=== PATIENT | male | born 1940 | race Caucasian/White ===

== ENCOUNTER → 2017-07-04 | Outpatient (CLI) | payer OTHER ==
[~2017-07-04] MED LIST: ASPEC81 PO; ATOR-26 PO; CLOP1TAB15 PO; CZR50 PO; ISOS60TA25 PO; METO1TAB69 PO; NIAC1TAB59 PO; NTRGSL/4 UT
--- NOTE | 2017-07-07 09:53 | MYOCARDIAL PERFUSION SCAN ---
ONE-DAY NUCLEAR MEDICINE TECHNETIUM-99M CARDIOLITE MYOCARDIAL PERFUSION SCAN CLINICAL HISTORY: The patient has known coronary artery disease and has had a total of 7 intracoronary stents. He presents with a chest pain syndrome and dyspnea. COMPARISON: None. TECHNIQUE: For the stress portion of the study, 32.9 mCi of Technetium 99 m Cardiolite IV was injected at 11:25 a.m. on 07/04/2017. Thirty minutes following the injection, imaging of the heart was performed in multiple projection. For the rest portion of the study, 10.9 mCi of Technetium 99 m Cardiolite was injected IV at 9:40 a.m. One hour following the injection, imaging of the heart was performed in the same projections. For the stress portion of the study, 0.4 mg of Lexiscan was injected intravenously as per protocol. The patient tolerated the procedure well. He did not experience chest discomfort. There were no EKG changes. Baseline EKG noted sinus rhythm and poor R-wave progression across the anterior precordium. Following the study, the patient was hemodynamically stable without complaints. FINDINGS: The short axis, vertical long axis, and horizontal long axis images were reviewed in detail. There is a large defect involving the mid and distal anterior wall, the entire apex, and the entire septum. The inferior wall also demonstrates a large defect. Only the lateral wall has normal perfusion at both stress and rest. There is no evidence of myocardial ischemia. The left ventricle demonstrates reduced systolic performance with an ejection fraction of 26%. The areas described above were [id number] hypokinetic. IMPRESSION: 1. Scintigraphic evidence of a large anterior, apical, and inferior myocardial infarction. 2. Only the lateral wall demonstrates normal perfusion. 3. No Lexiscan-induced chest pain. 4. No Lexiscan-induced EKG change. 5. Reduced left ventricular ejection fraction of 26% with a large wall motion abnormality in the area described above.
== END | disposition home or self-care (01) ==
LOC: C.NUCL 09:10
PROVIDERS: ATTEND Physician Assistant
DX: R07.9 Chest pain, unspecified (principal)

== ENCOUNTER 2021-09-16 11:51 | Inpatient (IN) ==
[2021-09-16] MEDS ORDERED: HEPARIN (PORCINE) 1000 UNIT/ML 10 ML (CATH LAB USE ONLY) ONE ×3 (12:19→14:24)
[2021-09-16] MEDS ORDERED: fentaNYL citrate 100 MCG/2 ML VIAL ONE (12:19)
[2021-09-16] MEDS ORDERED: niCARdipine HCL INJ 2.5 MG/ML 10 ML AMP ONE (12:19)
[2021-09-16] MEDS ORDERED: NITROGLYCERIN/D5W 100MCG/ML 20ML SYR ONE (12:20)
[2021-09-16] MEDS ORDERED: MIDAZOLAM HCL 1 MG/ML 2ML VIAL ONE (12:20)
[2021-09-16 12:28] LABS: Basophils # (auto) 0.01 K/uL (0-0.2); Basophils % (auto) 0.1 %; Eosinophils # (auto) 0.02 K/uL (0-0.5); Eosinophils % (auto) 0.3 %; Hematocrit (blood only) 43.7 % (42-52); Hemoglobin 14.6 g/dL (14.0-18.0); Immature Granulocytes # (auto) 0.01 K/uL (0.00-0.02); Immature Granulocytes % (auto) 0.1 %; Lymphocytes # (auto) 0.99 K/uL (1.2-3.4); Lymphocytes % (auto) 14.3 %; Mean Corpuscular Hemoglobin 31.3 pg (25-34); Mean Corpuscular Hgb Conc 33.4 g/dL (32-36); Mean Corpuscular Volume 93.8 fL (80-100); Mean Platelet Volume 10.5 fL (7.4-10.4); Monocytes # (auto) 0.39 K/uL (0.11-0.59); Monocytes % (auto) 5.6 %; Neutrophils # (auto) 5.52 K/uL (1.4-6.5); Neutrophils % (auto) 79.6 %; Platelet Count 304 K/uL (130-400); RDW Coefficient of Variation 14.1 % (11.5-14.5); RDW Standard Deviation 47.7 fL (36.4-46.3); Red Blood Count 4.66 M/uL (4.7-6.1); White Blood Count 6.94 K/uL (4.8-10.8)
[2021-09-16 12:41] LABS: INR 1.1 (0.9-1.1); Partial Thromboplastin Ratio 0.9; Partial Thromboplastin Time 23.4 Seconds (21.0-31.0); Prothrombin Time 10.8 Seconds (9.0-12.0)
[2021-09-16] MEDS ORDERED: FUROSEMIDE 40 MG/4 ML VIAL IV ONE ×2 (12:44→14:07)
[2021-09-16 12:47] LABS: Albumin Level 3.8 gm/dl (3.4-5.0); BUN Creatinine Ratio 18.9 (10-20); Calcium 9.9 mg/dl (8.5-10.1); Creatinine Clr Calc Pharmacy 36.6 ml/min; Est GFR (African American) 43.2 ml/min; Est GFR (Non-African American) 37.3 ml/min
[2021-09-16] MEDS ORDERED: SUCCINYLCHOLINE CHLORIDE 20 MG/ML 10 ML VIAL IV ONE (12:49)
[2021-09-16] MEDS ORDERED: RAPID SEQUENCE INDUCTION BAG ONE (12:49)
[2021-09-16] MEDS ORDERED: ETOMIDATE 2 MG/ML 20 ML VIAL IV ONE (12:49)
[2021-09-16] MEDS ORDERED: PROPOFOL IV EMULSION 10 MG/ML 100 ML VIAL (CATH LAB USE ONLY) ONE ×2 (12:52→16:34)
--- NOTE | 2021-09-16 12:52 | XRay Report ---
XR chest 1V portable CLINICAL HISTORY: Chest Pain COMPARISON STUDY: Chest radiograph July 08, 2009. FINDINGS: Lung volumes are normal. There is no pneumothorax. There are suspected trace bilateral pleu ral effusions. Extensive interstitial thickening represents pulmonary edema. Right perihilar opacity is present. Cardiomegaly is noted. IMPRESSION: 1. Extensive pulmonary edema with suspected trace bilateral pleural effusions. 2. Right perihilar opacity which may reflect alveolar edema. Radiographic follow-up to ensure resolut ion is recommended. ACT 112: Negative or not required by law. Electronically signed by: Kt Delacruz M.D. 09/16/2021 12:50 PM
[2021-09-16 12:56] LABS: Albumin Globulin Ratio 0.8 (0.9-2); Bilirubin,Total 0.5 mg/dl (0.2-1); Total Protein 8.8 gm/dl (6.4-8.2); Troponin I 3.7 ng/ml (0-0.045)
[2021-09-16] MEDS ORDERED: NOREPINEPHRINE BITARTRATE 1 MG/ML 4 ML VIAL (CATH LAB USE ONLY) ONE ×2 (12:58→16:52)
--- NOTE | 2021-09-16 13:14 | Emergency Department Note ---
Impression & Plan Acute CA, true posterior wall, Chest pain, Pulmonary edema, Respiratory failure ED Provider Note NAME: CALISTA BOATENG AGE: 81 SEX: M : 1940 ARRIVES VIA: Ambulance INFORMANT: Patient, EMS personnel ED PROVIDER(S): Brett Sheehan DO CHIEF COMPLAINT: Chest pain HPI: The patient is an 81-year-old male who presented to the emergency department for an evaluation of chest pain. The patient called 911 because of the ongoing chest pain. The patient started having chest pain this morning at approximately 5 AM. He notices diaphoresis as well as some shortness of breath. He describes the pain as heaviness he also notices pain into his shoulders. The patient states that he has had similar symptoms in the past with a heart att ack. Has not had a heart catheterization in many years. The patient arrived via ambulance. No IV was placed prior to arrival. The patient did receive aspirin prior to arrival. He also received his own nitroglycerin at home as well as nitroglycerin spray by the prehospital personnel. The patient states the pain is moderate at this time. He does note some worsening with exertion. He does admit that he has had some worsening pain over the course of the last few days but it was not continuous until today. The patient denies having any fever or cough. He has had no recent traveling. He does note swelling in his legs which is not new. ROS: See above HPI for pertinent positives & negatives. A total of 10 systems reviewed and were otherwise negative. PAST MEDICAL HISTORY: See Below PAST SURGICAL HISTORY: See Below FAMILY HISTORY: See Below SOCIAL HISTORY: See Below HOME MEDICATIONS: See Below ALLERGIES: See Below VITALS: See Below PHYSICAL EXAMINATION: GENERAL: The patient is awake and alert. He is somewhat anxious appearing. EYES: The conjunctivae are clear. The pupils are round and reactive. EARS, NOSE, MOUTH AND THROAT: The nose is without any evidence of any deformity.. NECK: The neck is nontender and supple. RESPIRATORY: Diminished breath sounds are noted throughout. There were rales at both bases. There is no tachypnea or conversational dyspnea. CARDIOVASCULAR: Regular rate and rhythm noted there no murmurs rubs or gallops normal S1 normal S2. GASTROINTESTINAL: The abdomen is soft. Abdomen is nontender. MUSCULOSKELETAL/EXTREMITIES: There is no evidence of gross deformity full range of motion is noted in the hips and shoulders. SKIN: Skin is cool and diaphoretic. Pedal edema was noted bilaterally. NEUROLOGIC: Patient is awake alert and oriented x3. MEDICAL DECISION MAKING: The patient is an 81-year-old male who presented to the emergency department for an evaluation of chest pain. The patient called 911 because of ongoing worsening chest pain. The patient has a history of CA in the past but has not had any intervention for a long time. The patient was found to have signs of posterior wall CA on prehospital EKGs. He was made a heart alert upon arrival to the emergency department. He did receive aspirin and nitroglycerin prior to arrival. The patient was very difficult to obtain an IV site in. I did discuss his condition with the grout worker. The patient's condition continued to worsen while he was in the emergency department. His breathing be came labored and he continued to go into pulmonary edema. The patient ultimately did have an IV placed by IV team. Blood was also drawn by myself. The patient was taken to the cardiac [employer]. Once he was in the cardiac [employer] [facility] his respiratory symptoms became much worse and I was asked to go to the [employer] to evaluate the patient for an endotracheal intubation. The patient had an endotracheal tube placed in the emergency department. He tolerated this quite well. The patient was prepped and cardiac catheterization was started while I was in the cardiac catheterization lab. I did discuss the patient's condition with his family members. Triage Nursing notes reviewed. Prior medical records reviewed Vital Signs: reviewed and remarkable for tachypnea, hypoxia, hypertension. Differential diagnosis: Cardiac ischemia, aortic dissection, pulmonary embolism, pneumothorax, pneumonia, pericarditis, myocarditis, esophageal rupture, GERD, cholecystitis, pancreatitis, musculoskeletal, as well as other pathologies. ER treatment provided: See below Diagnostics interpreted by me: ECG: EKG was obtained in the emergency department. My interpretation is sinus rhythm at 69 bpm. Sinus arrhythmia was noted. There were no PVCs. ST segment depressions were noted in the anterior leads with upgoing T waves consistent with acute posterior wall CA. This was compared to a tracing from February 152010. The changes are new compared to the previous tracing. Prehospital 12-lead was obtained prior to arrival. I did review these after the patient arrived at the emergency department. My interpretation is sinus rhythm at 71 bpm. PVCs were noted. Persistence of the ST segment depressions noted in the emergency department was noted on prehospital EKGs. Cardiac Monitoring: An order was placed for continuous cardiac monitoring. The monitor shows a rate of 93 bpm with sinus rhythm. Laboratory studies: As stated above and show below. Imaging studies: See below Consultation(s): Heart alert was called after I evaluated the patient's prehospital EKGs. Dr. Ornelas presented to the bedside. We discussed the patient's case. He was felt to be a good candidate for cardiac catheterization. ED COURSE: Procedures: Endotracheal Intubation Indication respiratory distress. I was called to the [employer] as the patient was developing worsening difficulty breathing as well as pulmonary edema. The patient was on 100% oxygen via NRB prior to the procedure. Suction, airway equipment, RSI drugs, respiratory equipment, and appropriate personnel were prepared prior to the initiation of the procedure. A time out was taken. Induction was performed with etomidate and succinylcholine. After observing the clinical benefit of the medications, the airway was easily visualized utilizing a glide scope. A 7.5 size ETT tube was placed atraumatically to 22 cm using standard technique. The cuff inflated without signs of malfunction. There were bilateral breath sounds, positive colormetric change, no gastric sounds, a good capnography waveform, and post procedure pulse oximetry was 90%. Post intubation sedation and paralysis was administered using propofol. There were no complications. Critical Care: I have personally spent greater than 45 minutes of critical care time in the direct management of this patient. This includes bedside care, interpretation of diagnostic studies, and testing, discussion with consultants, patient, and family members, and other required patient management activities. This 45 minutes is in excess of all separately billable procedures. 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 Prostate cancer Shortness of breath Sleep apnea Snoring Surgical History History of coronary artery stent placement bare metal x 3 RCA 06/2009; bare metal x 1 proximal LAD 02/14/2011 History of umbilical hernia repair Social History Smoking Status: Never smoker Tobacco Type: Cigarettes marital status: Feels Safe at Home: Yes Allergies Allergies Allergy/AdvReac Type Severity Reaction Status Date / Time lisinopril AdvReac Mild COUGH Verified 04/16/21 11:29 Home Meds Home Medications Medication Instructions Recorded Confirmed atorvastatin 80 mg tablet 80 mg PO DAILY #30 tab 07/20/19 09/16/21 fenofibrate nanocrystallized 145 145 mg PO DAILY tab 07/20/19 09/16/21 mg tablet glimepiride 4 mg tablet 4 mg PO BID tab 07/20/19 09/16/21 pioglitazone 30 mg tablet 30 mg PO DAILY tab 07/20/19 09/16/21 metformin 500 mg tablet,extended 1,000 mg PO DAILY tab 08/11/19 09/16/21 release 24hr aspirin 81 mg tablet,delayed 81 mg PO DAILY 09/16/21 09/16/21 release furosemide 40 mg tablet 40 mg PO UD 09/16/21 09/16/21 hydrochlorothiazide 25 mg tablet 25 mg PO DAILY 09/16/21 09/16/21 losartan 100 mg tablet 100 mg PO DAILY 09/16/21 09/16/21 Previous Rx's Medication Instructions Recorded metoprolol succinate 100 mg 150 mg PO DAILY #135 tab 10/11/20 tablet,extended release 24 hr nitroglycerin 0.4 mg sublingual 0.4 mg SL Q5M PRN #25 tab 11/13/20 tablet isosorbide mononitrate 120 mg 120 mg PO DAILY #90 tab 03/19/21 tablet,extended release 24 hr clopidogrel 75 mg tablet 75 mg PO 2XWK #24 tab 08/06/21 Results & Data (ED) Vital Signs Vital Signs - 24 hr 09/16/21 11:55 09/16/21 12:00 09/16/21 12:01 Temperature 36.7 C Temperature Source Oral Pulse Rate 84 83 Pulse Rate from SpO2 Sensor Respiratory Rate 20 31 H Respiratory Effort / Characteristics Non-Labored Spontaneous Respiratory Depth Normal Respiratory Pattern Regular Blood Pressure 128/70 128/70 Blood Pressure Mean 89 89 Pulse Oximetry 83 L 83 L 90 Oxygen Delivery Method Room Air Room Air Nasal Cannula Oxygen Flow Rate 5 Fraction of Inspired Oxygen Sepsis Recent Fever Within 48 Hours No Sepsis New/Unexplained Change in Mental Status No Sepsis Action Taken by Nursing No Action Required Oxygen Flow Rate - Titration 5 Pulse Oximetry Post Tiitration 90 09/16/21 12:26 09/16/21 12:30 09/16/21 13:00 Temperature Temperature Source Pulse Rate 81 95 H Pulse Rate from SpO2 Sensor 93 H Respiratory Rate 24 31 H 20 Respiratory Effort / Characteristics Respiratory Depth Respiratory Pattern Blood Pressure 147/88 H Blood Pressure Mean 107 Pulse Oximetry 90 91 89 L Oxygen Delivery Method Oxymask Oxymask Oxygen Flow Rate 5 10 Fraction of Inspired Oxygen 100 Sepsis Recent Fever Within 48 Hours Sepsis New/Unexplained Change in Mental Status Sepsis Action Taken by Nursing Oxygen Flow Rate - Titration Pulse Oximetry Post Tiitration 09/16/21 13:37 09/16/21 15:09 Temperature Temperature Source Pulse Rate 93 H Pulse Rate from SpO2 Sensor Respiratory Rate 24 26 H Respiratory Effort / Characteristics Respiratory Depth Respiratory Pattern Blood Pressure Blood Pressure Mean Pulse Oximetry 91 Oxygen Delivery Method Oxygen Flow Rate Fraction of Inspired Oxygen 100 Sepsis Recent Fever Within 48 Hours Sepsis New/Unexplained Change in Mental Status Sepsis Action Taken by Nursing Oxygen Flow Rate - Titration Pulse Oximetry Post Tiitration Home Medications Current Medication List: was personally reviewed by me Laboratory Data Attestation: I reviewed the patient's lab results. Result diagrams: 09/16/21 12:03 09/16/21 12:03 Lab Results 09/16/21 09/16/21 09/16/21 Range/Units 12:00 12:00 12:03 WBC 6.94 (4.8-10.8) K/uL RBC 4.66 L (4.7-6.1) M/uL Hgb 14.6 (14.0-18.0) g/dL Hct 43.7 (42-52) % MCV 93.8 (80-100) fL MCH 31.3 (25-34) pg MCHC 33.4 (32-36) g/dL RDW Std Deviation 47.7 H (36.4-46.3) fL RDW Coeff of Manohar 14.1 (11.5-14.5) % Plt Count 304 (130-400) K/uL MPV 10.5 H (7.4-10.4) fL Immature Gran % (Auto) 0.1 % Neut % (Auto) 79.6 % Lymph % (Auto) 14.3 % [place] % (Auto) 5.6 % Eos % (Auto) 0.3 % Baso % (Auto) 0.1 % Neut # (Auto) 5.52 (1.4-6.5) K/uL Lymph # (Auto) 0.99 L (1.2-3.4) K/uL [place] # (Auto) 0.39 (0.11-0.59) K/uL Eos # (Auto) 0.02 (0-0.5) K/uL Baso # (Auto) 0.01 (0-0.2) K/uL Immature Gran # (Auto) 0.01 (0.00-0.02) K/uL PT (9.0-12.0) Seconds INR (0.9-1.1) APTT (21.0-31.0) Seconds PTT Ratio Activ Coag Time Kaolin (94-140) SECONDS POC pH (7.35-7.45) POC pCO2 (35-46) mmHg POC pO2 (80-95) mmHg POC HCO3 (19-24) josef/L POC Total CO2 (24-31) mmol/L POC Base Excess (-9-1.8) josef/L POC ABG O2 Sat (90-95) % Sodium (136-145) mmol/L Potassium (3.5-5.1) mmol/L Chloride (98-107) mmol/L Carbon Dioxide (21-32) mmol/L Anion Gap (3-11) BUN (7-18) mg/dl Creatinine (0.6-1.4) mg/dl Est Cr Clr Drug Dosing ml/min Est GFR ( Amer) ml/min Est GFR (Non-Af Amer) ml/min BUN/Creatinine Ratio (10-20) Glucose (70-99) mg/dl Calcium (8.5-10.1) mg/dl Total Bilirubin (0.2-1) mg/dl AST (15-37) U/L ALT (12-78) U/L Alkaline Phosphatase (45-117) U/L Troponin I (0-0.045) ng/ml Total Protein (6.4-8.2) gm/dl Albumin (3.4-5.0) gm/dl Globulin (2.5-4.0) gm/dl Albumin/Globulin Ratio (0.9-2) Lipase (73-393) U/L COVID-19 Eval Order Covid19 at [facility] SARS-CoV-2 (PCR) NEGATIVE (Negative) 09/16/21 09/16/21 09/16/21 Range/Units 12:03 12:03 14:30 WBC (4.8-10.8) K/uL RBC (4.7-6.1) M/uL Hgb (14.0-18.0) g/dL Hct (42-52) % MCV (80-100) fL MCH (25-34) pg MCHC (32-36) g/dL RDW Std Deviation (36.4-46.3) fL RDW Coeff of Manohar (11.5-14.5) % Plt Count (130-400) K/uL MPV (7.4-10.4) fL Immature Gran % (Auto) % Neut % (Auto) % Lymph % (Auto) % [place] % (Auto) % Eos % (Auto) % Baso % (Auto) % Neut # (Auto) (1.4-6.5) K/uL Lymph # (Auto) (1.2-3.4) K/uL [place] # (Auto) (0.11-0.59) K/uL Eos # (Auto) (0-0.5) K/uL Baso # (Auto) (0-0.2) K/uL Immature Gran # (Auto) (0.00-0.02) K/uL PT 10.8 (9.0-12.0) Seconds INR 1.1 (0.9-1.1) APTT 23.4 (21.0-31.0) Seconds PTT Ratio 0.9 Activ Coag Time Kaolin 219 H (94-140) SECONDS POC pH (7.35-7.45) POC pCO2 (35-46) mmHg POC pO2 (80-95) mmHg POC HCO3 (19-24) josef/L POC Total CO2 (24-31) mmol/L POC Base Excess (-9-1.8) josef/L POC ABG O2 Sat (90-95) % Sodium 136 (136-145) mmol/L Potassium 4.0 (3.5-5.1) mmol/L Chloride 104 (98-107) mmol/L Carbon Dioxide 25 (21-32) mmol/L Anion Gap 7.0 (3-11) BUN 32 H (7-18) mg/dl Creatinine 1.68 H (0.6-1.4) mg/dl Est Cr Clr Drug Dosing 36.6 ml/min Est GFR ( Amer) 43.2 ml/min Est GFR (Non-Af Amer) 37.3 ml/min BUN/Creatinine Ratio 18.9 (10-20) Glucose 231 H (70-99) mg/dl Calcium 9.9 (8.5-10.1) mg/dl Total Bilirubin 0.5 (0.2-1) mg/dl AST 59 H (15-37) U/L ALT 35 (12-78) U/L Alkaline Phosphatase 78 (45-117) U/L Troponin I 3.700 H* (0-0.045) ng/ml Total Protein 8.8 H (6.4-8.2) gm/dl Albumin 3.8 (3.4-5.0) gm/dl Globulin 5.0 H (2.5-4.0) gm/dl Albumin/Globulin Ratio 0.8 L (0.9-2) Lipase 111 (73-393) U/L COVID-19 Eval Order SARS-CoV-2 (PCR) (Negative) 09/16/21 09/16/21 09/16/21 Range/Units 14:32 14:51 14:52 WBC (4.8-10.8) K/uL RBC (4.7-6.1) M/uL Hgb (14.0-18.0) g/dL Hct (42-52) % MCV (80-100) fL MCH (25-34) pg MCHC (32-36) g/dL RDW Std Deviation (36.4-46.3) fL RDW Coeff of Manohar (11.5-14.5) % Plt Count (130-400) K/uL MPV (7.4-10.4) fL Immature Gran % (Auto) % Neut % (Auto) % Lymph % (Auto) % [place] % (Auto) % Eos % (Auto) % Baso % (Auto) % Neut # (Auto) (1.4-6.5) K/uL Lymph # (Auto) (1.2-3.4) K/uL [place] # (Auto) (0.11-0.59) K/uL Eos # (Auto) (0-0.5) K/uL Baso # (Auto) (0-0.2) K/uL Immature Gran # (Auto) (0.00-0.02) K/uL PT (9.0-12.0) Seconds INR (0.9-1.1) APTT (21.0-31.0) Seconds PTT Ratio Activ Coag Time Kaolin 241 H (94-140) SECONDS POC pH 7.06 L* 7.25 L (7.35-7.45) POC pCO2 67 H 56 H (35-46) mmHg POC pO2 70 L 71 L (80-95) mmHg POC HCO3 19 24 (19-24) josef/L POC Total CO2 21 L 26 (24-31) mmol/L POC Base Excess -11.0 L -3.0 (-9-1.8) josef/L POC ABG O2 Sat 84.0 L 91.0 (90-95) % Sodium (136-145) mmol/L Potassium (3.5-5.1) mmol/L Chloride (98-107) mmol/L Carbon Dioxide (21-32) mmol/L Anion Gap (3-11) BUN (7-18) mg/dl Creatinine (0.6-1.4) mg/dl Est Cr Clr Drug Dosing ml/min Est GFR ( Amer) ml/min Est GFR (Non-Af Amer) ml/min BUN/Creatinine Ratio (10-20) Glucose (70-99) mg/dl Calcium (8.5-10.1) mg/dl Total Bilirubin (0.2-1) mg/dl AST (15-37) U/L ALT (12-78) U/L Alkaline Phosphatase (45-117) U/L Troponin I (0-0.045) ng/ml Total Protein (6.4-8.2) gm/dl Albumin (3.4-5.0) gm/dl Globulin (2.5-4.0) gm/dl Albumin/Globulin Ratio (0.9-2) Lipase (73-393) U/L COVID-19 Eval Order SARS-CoV-2 (PCR) (Negative) 09/16/21 09/16/21 Range/Units 15:19 15:19 WBC (4.8-10.8) K/uL RBC (4.7-6.1) M/uL Hgb (14.0-18.0) g/dL Hct (42-52) % MCV (80-100) fL MCH (25-34) pg MCHC (32-36) g/dL RDW Std Deviation (36.4-46.3) fL RDW Coeff of Manohar (11.5-14.5) % Plt Count (130-400) K/uL MPV (7.4-10.4) fL Immature Gran % (Auto) % Neut % (Auto) % Lymph % (Auto) % [place] % (Auto) % Eos % (Auto) % Baso % (Auto) % Neut # (Auto) (1.4-6.5) K/uL Lymph # (Auto) (1.2-3.4) K/uL [place] # (Auto) (0.11-0.59) K/uL Eos # (Auto) (0-0.5) K/uL Baso # (Auto) (0-0.2) K/uL Immature Gran # (Auto) (0.00-0.02) K/uL PT (9.0-12.0) Seconds INR (0.9-1.1) APTT (21.0-31.0) Seconds PTT Ratio Activ Coag Time Kaolin (94-140) SECONDS POC pH 7.26 L 7.23 L (7.35-7.45) POC pCO2 49 H 63 H (35-46) mmHg POC pO2 65 L < 32 L (80-95) mmHg POC HCO3 22 26 H (19-24) josef/L POC Total CO2 23 L 28 (24-31) mmol/L POC Base Excess -5.0 -2.0 (-9-1.8) josef/L POC ABG O2 Sat 89.0 L 38.0 L (90-95) % Sodium (136-145) mmol/L Potassium (3.5-5.1) mmol/L Chloride (98-107) mmol/L Carbon Dioxide (21-32) mmol/L Anion Gap (3-11) BUN (7-18) mg/dl Creatinine (0.6-1.4) mg/dl Est Cr Clr Drug Dosing ml/min Est GFR ( Amer) ml/min Est GFR (Non-Af Amer) ml/min BUN/Creatinine Ratio (10-20) Glucose (70-99) mg/dl Calcium (8.5-10.1) mg/dl Total Bilirubin (0.2-1) mg/dl AST (15-37) U/L ALT (12-78) U/L Alkaline Phosphatase (45-117) U/L Troponin I (0-0.045) ng/ml Total Protein (6.4-8.2) gm/dl Albumin (3.4-5.0) gm/dl Globulin (2.5-4.0) gm/dl Albumin/Globulin Ratio (0.9-2) Lipase (73-393) U/L COVID-19 Eval Order SARS-CoV-2 (PCR) (Negative) Administered Medications Discontinued Medications Amiodarone HCl/Dextrose (Amiodarone 150mg / 100ml D5w ([employer] Use Only)) Confirm Administered Dose 150 mg .ROUTE .STK-MED ONE Stop: 09/16/21 14:00 Last Admin: 09/16/21 16:07 Dose: 150 mg Documented by: [id number] Amiodarone HCl/Dextrose (Amiodarone 360mg / 200ml D5w ([employer] Use Only)) Confirm Administered Dose 360 mg .ROUTE .ST2houses-MED ONE Stop: 09/16/21 14:00 Last Admin: 09/16/21 16:07 Dose: 360 mg Documented by: [id number] Clopidogrel Bisulfate (Clopidogrel Bisulfate 300 Mg Tab) Confirm Administered Dose 600 mg .ROUTE .ST2houses-MED ONE Stop: 09/16/21 15:19 Last Admin: 09/16/21 16:07 Dose: 600 mg Documented by: [id number] Dobutamine HCl/Dextrose (Dobutamine 500mg / 250ml D5w ([employer] Use Only)) Confirm Administered Dose 500 mg .ROUTE .ST2houses-MED ONE Stop: 09/16/21 14:34 Last Admin: 09/16/21 16:06 Dose: 10 mcg Documented by: [id number] Dobutamine HCl/Dextrose (Dobutamine 500mg / 250ml D5w ([employer] Use Only)) Confirm Administered Dose 500 mg .ROUTE .STK-MED ONE Stop: 09/16/21 14:54 Last Admin: 09/16/21 16:06 Dose: Not Given Documented by: [id number] Dopamine HCl/Dextrose (Dopamine 400mg / 250ml D5w ([employer] Use Only)) Confirm Administered Dose 400 mg .ROUTE .STK-MED ONE Stop: 09/16/21 13:34 Last Admin: 09/16/21 16:09 Dose: Not Given Documented by: [id number] Eptifibatide (Eptifibatide 2 Mg/Ml 10 Ml Vial ([employer] Use Only)) Confirm Administered Dose 20 mg IV .ST2houses-MED ONE Stop: 09/16/21 13:58 Last Admin: 09/16/21 16:08 Dose: 9 ml Documented by: [id number] Fentanyl Citrate (Fentanyl Citrate 100 Mcg/2 Ml Vial) Confirm Administered Dose 100 mcg .ROUTE .ST2houses-MED ONE Stop: 09/16/21 12:20 Last Admin: 09/16/21 15:16 Dose: 25 mcg Documented by: [id number] Furosemide (Furosemide 40 Mg/4 Ml Vial) Confirm Administered Dose 40 mg IV .ST2houses- MED ONE Stop: 09/16/21 12:45 Last Admin: 09/16/21 16:13 Dose: 40 mg Documented by: [id number] Furosemide (Furosemide 40 Mg/4 Ml Vial) Confirm Administered Dose 40 mg IV .ST2houses- MED ONE Stop: 09/16/21 14:08 Last Admin: 09/16/21 16:07 Dose: 40 mg Documented by: [id number] Heparin Sodium (Porcine) (Heparin (Porcine) 1000 Unit/Ml 10 Ml ([employer] Use Only)) Confirm Administered Dose 10,000 units .ROUTE .ST2houses-MED ONE Stop: 09/16/21 12:20 Last Admin: 09/16/21 16:05 Dose: 10,000 units Documented by: [id number] Heparin Sodium (Porcine) (Heparin (Porcine) 1000 Unit/Ml 10 Ml ([employer] Use Only)) Confirm Administered Dose 10,000 units .ROUTE .ST2houses-MED ONE Stop: 09/16/21 13:37 Last Admin: 09/16/21 16:05 Dose: 10,000 units Documented by: [id number] Heparin Sodium (Porcine) (Heparin (Porcine) 1000 Unit/Ml 10 Ml ([employer] Use On ly)) Confirm Administered Dose 10,000 units .ROUTE .ST2houses-MED ONE Stop: 09/16/21 14:25 Last Admin: 09/16/21 16:06 Dose: 2,000 units Documented by: [id number] Heparin Sodium/Dextrose (Heparin 30065 Unit/500 Ml D5w) Confirm Administered Dose 25,000 units IV .ST2houses-MED ONE Stop: 09/16/21 15:18 Last Admin: 09/16/21 16:06 Dose: 1,400 units Documented by: [id number] Cosigned by: [id number] Heparin Sodium/Sodium Chloride (Heparin In Nss Infusion 1000 Unit/500 Ml (2 U/Ml) Bag) Confirm Administered Dose 3,000 units IV .STK-MED ONE Stop: 09/16/21 12:21 Last Admin: 09/16/21 16:13 Dose: 3,000 units Documented by: [id number] Midazolam HCl (Midazolam Hcl 1 Mg/Ml 2ml Vial) Confirm Administered Dose 2 mg .ROUTE .STK-MED ONE Stop: 09/16/21 12:21 Last Admin: 09/16/21 16:13 Dose: 1 mg Documented by: [id number] Miscellaneous (Rapid Sequence Induction Bag) Confirm Administered Dose 1 ea .ROUTE .STK-MED ONE Stop: 09/16/21 12:50 Last Admin: 09/16/21 16:12 Dose: 1 ea Documented by: [id number] Nicardipine HCl (Nicardipine Hcl Inj 2.5 Mg/Ml 10 Ml Amp) Confirm Administered Dose 25 mg .ROUTE .STK-MED ONE Stop: 09/16/21 12:20 Last Admin: 09/16/21 16:05 Dose: 25 mg Documented by: [id number] Nitroglycerin/Dextrose (Nitroglycerin/D5w 100mcg/Ml 20ml Syr) Confirm Administered Dose 2,000 mcg .ROUTE .STK-MED ONE Stop: 09/16/21 12:21 Last Admin: 09/16/21 16:13 Dose: 2,000 mcg Documented by: [id number] Norepinephrine Bitartrate (Norepinephrine Bitartrate 1 Mg/Ml 4 Ml Vial ([employer] Use Only)) Confirm Administered Dose 8 mg .ROUTE .STK-MED ONE Stop: 09/16/21 12:59 Last Admin: 09/16/21 16:09 Dose: 0.05 mcg Documented by: [id number] Propofol (Propofol Iv Emulsion 10 Mg/Ml 100 Ml Vial ([employer] Use Only)) Confirm Administered Dose 1,000 mg .ROUTE .STK-MED ONE Stop: 09/16/21 12:53 Last Admin: 09/16/21 16:12 Dose: 1,000 mg Documented by: [id number] Propofol (Propofol Iv Emulsion 10 Mg/Ml 100 Ml Vial) Confirm Administered Dose 1 ,000 mg IV .STK-MED ONE Stop: 09/16/21 15:13 Last Admin: 09/16/21 16:06 Dose: 1,000 mg Documented by: [id number] Cosigned by: [id number] Sodium Bicarbonate (Sodium Bicarb 8.4% Inj 50 Meq/50 Ml Syr) Confirm Administered Dose 100 meq IV .STK-MED ONE Stop: 09/16/21 13:39 Last Admin: 09/16/21 16:08 Dose: 100 meq Documented by: [id number] Imaging Data Radiologist's Impression: Chest X-Ray 09/16/21 11:56 XR chest 1V portable CLINICAL HISTORY: Chest Pain COMPARISON STUDY: Chest radiograph July 08, 2009. FINDINGS: Lung volumes are normal. There is no pneumothorax. There are suspected trace bilateral pleural effusions. Extensive interstitial thickening represents pulmonary edema. Right perihilar opacity is present. Cardiomegaly is noted. IMPRESSION: 1. Extensive pulmonary edema with suspected trace bilateral pleural effusions. 2. Right perihilar opacity which may reflect alveolar edema. Radiographic follow-up to ensure resolution is recommended. ACT 112: Negative or not required by law. Electronically signed by: Kt Delacruz M.D. 09/16/2021 12:50 PM Discharge Plan Visit Data Chief Complaint: Chest Pain ED Provider: Brett Sheehan Discharge Problem: Acute CA, true posterior wall, Chest pain, Pulmonary edema, Respiratory failure Patient Disposition: Admitted As Inpatient Discharge Instructions Interventions: ED Discharge Assessment Last Done: 09/16/21 12:44 Discharge Problem: Chest pain Qualifiers: Chest pain type: chest pain due to myocardial ischemia Ischemic chest pain type: unspecified angina pectoris type Qualified Code(s): I25.9 - Chronic ischemic heart disease, unspecified Pulmonary edema Qualifiers: Chronicity: acute Qualified Code(s): J81.0 - Acute pulmonary edema Respiratory failure Qualifiers: Chronicity: acute Respiratory failure complication: hypoxia Qualified Code(s): J96.01 - Acute respiratory failure with hypoxia
[2021-09-16] MEDS ORDERED: DOPamine 400MG / 250ML D5W (Cath Lab Use ONLY) ONE (13:33)
[2021-09-16] MEDS ORDERED: SODIUM BICARB 8.4% INJ 50 MEQ/50 ML SYR IV ONE (13:38)
[2021-09-16] MEDS ORDERED: EPTIFIBATIDE 2 MG/ML 10 ML VIAL (CATH LAB USE ONLY) IV ONE (13:57)
[2021-09-16] MEDS ORDERED: AMIODARONE 150MG / 100ML D5W (CATH LAB USE ONLY) ONE (13:59)
[2021-09-16] MEDS ORDERED: AMIODARONE 360MG / 200ML D5W (CATH LAB USE ONLY) ONE (13:59)
[2021-09-16] MEDS ORDERED: DOBUTamine 500MG / 250ML D5W (CATH LAB USE ONLY) ONE ×2 (14:33→14:53)
[2021-09-16] MEDS ORDERED: PROPOFOL IV EMULSION 10 MG/ML 100 ML VIAL IV ONE (15:12)
[2021-09-16] MEDS ORDERED: HEPARIN 25000 UNIT/500 ML D5W IV ONE (15:17)
[2021-09-16] MEDS ORDERED: CLOPIDOGREL BISULFATE 300 MG TAB ONE (15:18)
[2021-09-16 15:46] LABS: iSTAT Arterial Blood Gas HCO3 24 meg/L (19-24); iSTAT Arterial Blood Gas pCO2 56 mmHg (35-46); iSTAT Arterial Blood Gas pH 7.25 (7.35-7.45); iSTAT Arterial Blood Gas pO2 71 mmHg (80-95); iSTAT Carbon Dioxide 26 mmol/L (24-31)
[2021-09-16 15:46] LABS: iSTAT Arterial Blood Gas HCO3 22 meg/L (19-24); iSTAT Arterial Blood Gas pCO2 49 mmHg (35-46); iSTAT Arterial Blood Gas pH 7.26 (7.35-7.45); iSTAT Arterial Blood Gas pO2 65 mmHg (80-95); iSTAT Carbon Dioxide 23 mmol/L (24-31)
[2021-09-16 15:48] LABS: iSTAT Arterial Blood Gas HCO3 26 meg/L (19-24); iSTAT Arterial Blood Gas pCO2 63 mmHg (35-46); iSTAT Arterial Blood Gas pH 7.23 (7.35-7.45); iSTAT Arterial Blood Gas pO2 < 32 mmHg (80-95); iSTAT Carbon Dioxide 28 mmol/L (24-31)
[2021-09-16 15:48] LABS: iSTAT Arterial Blood Gas HCO3 19 meg/L (19-24); iSTAT Arterial Blood Gas pCO2 67 mmHg (35-46); iSTAT Arterial Blood Gas pH 7.06 (7.35-7.45); iSTAT Arterial Blood Gas pO2 70 mmHg (80-95); iSTAT Carbon Dioxide 21 mmol/L (24-31)
--- NOTE | 2021-09-16 15:59 | Cardiac Catheterization ---
[facility] Data: [facility] Cardiac Status Clinical evaluation leading to the procedure CAD Presenation: STEMI Anginal Classification: CCS IV Heart Failure: NYHA Class: CCS II Cardiogenic Shock within 24 Hours: Yes Cardiac Arrest within 24 Hours: No Imaging Studies Past 6 Months: No Stress Studies Past 6 Months: No Diagnostic Physicians Name: Mir Ornelas MD Status: Emergency Closure Device Percutaneous Entry Location: Radial Closure Device: Radial Band Recommendations: PCI without planned CABG PCI Indication: Immediate PCI for STEMI Lesion Segment Name: mid circumflex Culprit Artery: Yes Stenosis Prior to Rx (%): 100 Chronic Total Occlusion: No IVUS: No FFR: No Pre-Procedure KETTY Flow: 0 Previously Treated Lesion: No Lesion Complexity: High/C Lesion Length (mm): 35 Thrombus Present: Yes Bifurcation Lesion: Yes Guidewire Across Lesion: Stenosis Post-Procedure (%): 0 Post-Procedure KETTY Flow: 3 Devices(s) Deployed: Yes Yes Intraprocedure Events Significant Disection: No Perforation: No Cardiac Cath Procedure Full Procedure Date September 16, 2021 Pre-Procedure Diagnosis Pre-Procedure Diagnosis: STEMI AUC Score AUC Score: 9 Post-Procedure Diagnosis Post-Procedure Diagnosis: Severe CAD, Successful PCI, Decreased LV Systolic Function and Elevated Intracardiac Pressures Procedure(s) Performed Procedure(s) Performed: Coronary Angiography, Left Heart Cath, Right Heart Cath, Drug Eluting Stent, IABP and Ultrasound Guided Vascular Access Solidworks Designer Mir Ornelas MD Pattern Drafter(s) De[place]ler Estimated Blood Loss Estimated Blood Loss: 25 Medication(s) Medication(s): Clopidogrel, Fentanyl, Heparin, Integrilin, Lidocaine 1%, Nicardipine, Nitroglycerin, Norepinephrine and Versed Medication(s): Dobutamine, amiodarone. Summary of Findings Indication: STEMI/Heart Alert Substernal chest pain radiating to left arm with associated shortness of breath, diaphoresis beginning approximately 7 hours prior to presentation. History of coronary artery disease with remote inferior HI with multiple bare- metal stents to RCA, prior PCI to proximal LAD with bare-metal stent 2010 Prior nuclear stress in 2017 showed large apical infarct. EF at that time 26%. More recent echo 35 to 40% Access: 6 Fr right ulnar artery, 8 Fr right common femoral artery, 6 Fr right common femoral vein, 6 Fr left common femoral vein Catheters: 5 Fr EBU 3.5 guide, diagnostic JR4, 6 Fr [place], IABP Findings: LM -normal caliber, no irregularities LAD -100% chronic ostial occlusion Circumflex -70% ostial stenosis, 100% acute mid occlusion. RCA -dominant, medium caliber, 40 to 50% ostial stenosis, patent overlapping mid RCA stent with 50% in-stent restenosis. 70% right posterior AV branch after PDA. Provides right to left collaterals to LAD. -- PCI -- Antithrombotic therapy: Heparin, bolus Integrilin, clopidogrel Procedure: Upon arrival to [facility] patient hypoxic in respiratory distress Electively intubated prior to procedure. Given additional lasix Hypotensive with initiation of norepinephrine Right ulnar access under ultrasound guidance Left main cannulated with EBU 3.5 guide Assistant Refinery Operator 50 wire passed mid circumflex occlusion into distal vessel Proximal/mid circumflex lesion predilated with 2.0 compliant balloon and flow reestablished Brief attempt made to wire into LAD but bar pilot 50 wire would not pass across proximal occlusion which appeared chronic Right SMALL ARMS REPAIRER, CFV access obtained under ultrasound guidance IABP placed to descending aorta Dilated mid circumflex lesion stented with 2.5 x 22 mm Moe Second ENIO placed from left main across ostial circumflex stenosis and overlapping with initial stent (3.0 x 18 mm Moe). Proximal stent and overlapped post-dilated with 4.0 noncompliant balloon Post procedure KETTY 3 flow, stents well expanded and no apparent cardiac complications. Initial right heart cath: RA 13 RV 59/15 PA 58/35/44 PAWP 29-36 LV 38 PaSat 27% AoSat 89% Santino CO/CI 2.2/1.1 Repeat after continued IABP, norepi and addition of dobutamine. PaSat 57% AoSat 89% Santino CO/CI 4.2/2.1 PA 45/19/30 Arterial Closure: TR Band Summary: 1. Lateral STEMI/Acutely occluded mid circumflex 2. Cardiogenic shock 3. Acute hypoxic respiratory failure 4. Severe chronic non-culprit coronary artery disease. - 100% ostial LAD chronic occlusion. Right to left collaterals to LAD. - 40-50% ostial RCA, 50% mid RCA ISR, 70% R-PAV 5. Successful PCI of left main to mid circumflex with 2 overlapping drug-eluting stents (3.0 x 18, 2.5 x 22 mm [place]; postdilated proximally with 4.0 NC). 6. Successful IABP placement Recommendations: Transfer to tertiary center for continued monitoring possible hemodynamic support. Loaded with Clopidogrel in salvage laborer Hemodynamics Rest Ao:: 96/67/68 Final Ao: 122/70/89 LV: 102/38 Recommendations Recommendations: PCI without planned CABG Specimens Specimens: None Radiation Exposure (mGy) 3589 Contrast (mls) 80 Fluids (cc crystalloids) Fluids (cc crystalloids): 75 Drains Drains: none Anesthesia moderate [id number] Procedural Complication(s) None Disposition ICU I attest to the content of the Intraoperative Record and any orders documented therein. Any exceptions are noted below. [facility] Card Cath Procedure Codes Cardiac Catheterization Procedure 1: Cardiovascular Cath Procedures: 90544 Coronaries & LHC (+/-LV) & RHC Therapeutic Services & Ancillary Proc Procedure 1: Cardiovascular Tx and Anc Procedures: 40152 Ultrasonic Guidance Vascular Access Procedure 2: Cardiovascular Tx and Anc Procedures: 30892 Ultrasonic Guidance Vascular Access Procedure 3: Cardiovascular Tx and Anc Procedures: 43130 Ultrasonic Guidance Vascular Access Procedure 4: Cardiovascular Tx and Anc Procedures: 93474 IABP Insertion Moderate Sedation Procedure 1: Sedation/Anesthesia: 91499 Mod Sedation by the same physician;Init15 Min Child Age 5 & Up Procedure 2: Sedation/Anesthesia: 06551 Mod Sedation by the same physician; Ea [id number] Minutes Stenting Procedure 1: Cardiovascular Stent Procedures: 59829 Perc transluminal revascularization of acute sub/total occl, aMI PG Care Time/CCT Total # of Minutes Spent Total Time Spent with Patient: Total time spent is greater than 50% in coordination of care (as documented) at patient's floor/unit and/or counseling patient:
--- NOTE | 2021-09-16 16:14 | Cardiology Consultation ---
Date of Consultation September 16, 2021 Assessment & Plan (1) Acute NJ: Presentation consistent with Acute NJ and recommend proceeding with emergent cardiac catheterization and likely primary PCI. Discussed risks, benefits, alternatives of procedure with patient and they are willing to proceed. Further recommendations pending findings of coronary angiography. History of Present Illness Attending Physician: Mir Ornelas MD History of Present Illness 81-year-old man here with acute chest pain and ECG concerning for acute NJ. Patient seen emergently in the ED after heart alert activated on arrival. Past cardiac history remarkable for coronary artery disease post inferior NJ in 2008 treated with PCI and 3 bare-metal stents. Later had PCI to proximal LAD with bare-metal stent in 2010 in the setting of angina. Prior stress test in 2017 showed anterior/apical/inferior infarct. Last echo 2017 EF 40% with apical akinesis. Followed by Dr. Segovia, stable until recently on 3 antianginals. Other medical issues include type 2 diabetes, hypertension, dyslipidemia. Chest pain today began approximately 6 hours prior to arrival waking him from sleep. Describes substernal chest pain radiating to left arm with associated dyspnea, diaphoresis. Symptoms similar to those with prior NJ. Chest pain at time of arrival 03/19. Hemodynamically stable. EKG showed lateral ST elevations. Chest xray with extensive pulmonary edema. Allergies Allergy/AdvReac Type Severity Reaction Status Date / Time lisinopril AdvReac Mild COUGH Verified 04/16/21 11:29 Home Medications Medication Instructions Recorded Confirmed Type atorvastatin 80 mg tablet 80 mg PO DAILY #30 tab 07/20/19 09/16/21 History fenofibrate nanocrystallized 145 145 mg PO DAILY tab 07/20/19 09/16/21 History mg tablet glimepiride 4 mg tablet 4 mg PO BID tab 07/20/19 09/16/21 History pioglitazone 30 mg tablet 30 mg PO DAILY tab 07/20/19 09/16/21 History metformin 500 mg tablet,extended 1,000 mg PO DAILY tab 08/11/19 09/16/21 History release 24hr metoprolol succinate 100 mg 150 mg PO DAILY #135 tab 10/11/20 09/16/21 Rx tablet,extended release 24 hr nitroglycerin 0.4 mg sublingual 0.4 mg SL Q5M PRN #25 tab 11/13/20 09/16/21 Rx tablet isosorbide mononitrate 120 mg 120 mg PO DAILY #90 tab 03/19/21 09/16/21 Rx tablet,extended release 24 hr clopidogrel 75 mg tablet 75 mg PO 2XWK #24 tab 08/06/21 09/16/21 Rx aspirin 81 mg tablet,delayed 81 mg PO DAILY 09/16/21 09/16/21 History release furosemide 40 mg tablet 40 mg PO UD 09/16/21 09/16/21 History hydrochlorothiazide 25 mg tablet 25 mg PO DAILY 09/16/21 09/16/21 History losartan 100 mg tablet 100 mg PO DAILY 09/16/21 09/16/21 History Patient History Medical History Carcinoma of prostate Fatigue 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 Physical Exam Physical Exam: General: Tachypneic HEENT: Sclerae anicteric Lungs: Crackles diffuse anteriorly Cardiac: Tachycardic, 2/6 jayne Vascular: diminished radial pulses Abdomen: Soft, nontender Extremities: Well perfused, no peripheral edema Neuro: Nonfocal Psych: Alert orient x3, normal affect and mood Results & Data ([facility]) Vital Signs (Past 12 Hours) Vital Signs Temp Pulse Resp BP Pulse Ox 09/16/21 12:30 95 H 31 H 147/88 H 91 09/16/21 12:26 81 24 90 09/16/21 12:01 83 31 H 128/70 90 09/16/21 12:00 83 L 09/16/21 11:55 98.1 F 84 20 128/70 83 L PG Care Time/CCT Total # of Minutes Spent Total Time Spent with Patient: Total time spent is greater than 50% in coordination of care (as documented) at patient's floor/unit and/or counseling patient: Coding Level of Care Code 64054 Initial Inpt Care Lvl 3 Diagnoses Acute NJ I21.9
--- NOTE | 2021-09-17 12:00 | Electrocardiogram Report ---
Test Reason : Blood Pressure : / mmHG Vent. Rate : 069 BPM Atrial Rate : 069 BPM P-R Int : 166 ms QRS Dur : 098 ms QT Int : 386 ms P-R-T Axes : 042 003 026 degrees QTc Int : 413 ms Sinus rhythm with marked sinus arrhythmia Nonspecific ST abnormality Abnormal ECG When compared with ECG of 15-FEB-2011 06:40, QRS axis Shifted right Criteria for Septal infarct are no longer Present ST now depressed in Inferior leads ST now depressed in Anterior leads ST elevation now present in Lateral leads T wave amplitude has increased in Anterior leads Confirmed by Brett Webb ([id number]) on 09/17/2021 11:59:39 AM Referred By: Confirmed By:Brett Webb
[2021-09-17 14:54] LABS: iSTAT Arterial Blood Gas HCO3 23 meg/L (19-24); iSTAT Arterial Blood Gas pCO2 51 mmHg (35-46); iSTAT Arterial Blood Gas pH 7.26 (7.35-7.45); iSTAT Arterial Blood Gas pO2 64 mmHg (80-95); iSTAT Carbon Dioxide 24 mmol/L (24-31)
[2021-09-17 14:57] LABS: iSTAT Arterial Blood Gas HCO3 26 meg/L (19-24); iSTAT Arterial Blood Gas pCO2 60 mmHg (35-46); iSTAT Arterial Blood Gas pH 7.25 (7.35-7.45); iSTAT Arterial Blood Gas pO2 35 mmHg (80-95); iSTAT Carbon Dioxide 28 mmol/L (24-31)
== END 2021-09-16 18:00 | disposition short-term general hospital (02) | DRG 270 ==
LOC: ED 11:51 → CC 12:48 → 1E 13:26